=== PATIENT | female | born 1995 | race Two or more races ===

== ENCOUNTER 2016-07-05 18:18 | Emergency (ER) | payer SELFPAY ==
[~2016-07-05] VITALS: Ht 165.1 cm; Wt 62.1 kg
[2016-07-05 18:22] VITALS: BP 109/74
== END 2016-07-05 19:02 ==
LOC: EDBD → ED 19:01
DX: S16.1XXA Strain of muscle, fascia and tendon at neck level, initial encounter (principal); V89.2XXA Person injured in unspecified motor-vehicle accident, traffic, initial encounter; Y93.89 Activity, other specified; Y92.89 Other specified places as the place of occurrence of the external cause; Y99.8 Other external cause status
CPT/HCPCS: 99283

== ENCOUNTER 2016-07-05 18:22 | Emergency (ER) | payer MEDICAID, OTHER ==
[2016-07-05] MEDS ORDERED: KETOROLAC 30 MG/1 ML ONE (18:46)
[2016-07-05] MEDS ORDERED: METHOCARBAMOL 750 MG TABLET ONE (18:46)
[2016-07-05] MEDS ORDERED: KETOROLAC 30 MG/1 ML IM ONE (19:00)
[2016-07-05] MEDS ORDERED: METHOCARBAMOL 750 MG TABLET PO ONE (19:00)
[2016-07-05] MEDS ORDERED: PLEASE ENTER ALLERGIES MC SCH ×2 (19:00)
[2016-07-05 19:26] VITALS: BP 110/54
== END 2016-07-05 19:29 | disposition home or self-care (01) ==
LOC: MERGE 18:22 → ED 19:23
DX: M54.2 Cervicalgia (principal)
CPT/HCPCS: 72050; 96372; 99284; J1885

== ENCOUNTER 2019-07-13 18:53 | Emergency (ER) | payer MEDICAID, OTHER ==
[~2019-07-13] VITALS: Ht 157.5 cm; Wt 72.0 kg
--- NOTE | 2019-07-13 19:14 | NUR ---
THIS IS A 23 YO FEMALE COMING IN FOR "TIGHTNESS IN MY CHEST AND IT'S A LITTLE HARD TO CATCH MY BREATH". PATIENT STATES THESE SYMPTOMS STARTED YESTERDAY, THE PAST WEEK THOUGH HAS BEEN FEELING "FEVERY AND I HAD THE CHILLS AND A SORE THROAT". PATIENT DENIES ANY MEDICAL HX. LUNG SOUNDS CLEAR BUT MILDLY DIMINISHED THROUGHOUT. SPO2 AT 98% ON RA. 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 ALL MONITORING IN PLACE. CALL LIGHT IN REACH
--- NOTE | 2019-07-13 19:50 | NUR ---
Trung sexton in [facility] - 07/13/19 at 2015 by AUSTIN LISANDRA LAROSE
--- NOTE | 2019-07-13 20:00 | NUR ---
PATIENT RESTING, RESPIRATIONS EVEN AND UNLABORED. VSS. NAD. CALL LIGHT IN REACH
--- NOTE | 2019-07-13 20:45 | NUR ---
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
[2019-07-13 20:57] LABS: BASOPHILS # (AUTO) 0.05 x10^3/uL (0-0.1); BASOPHILS % (AUTO) 1 % (0-1); EOSINOPHILS # (AUTO) 0.18 x10^3/uL (0-0.4); EOSINOPHILS % (AUTO) 2 % (1-7); LYMPHOCYTES # (AUTO) 2.33 x10^3/uL (1-3.4); LYMPHOCYTES % (AUTO) 24 % (22-44); MD NO; MEAN CORPUSCULAR HEMOGLOBIN 30.3 pg (27.0-34.8); MEAN CORPUSCULAR HGB CONC 33.9 g/dL (32.4-35.8); MEAN CORPUSCULAR VOLUME 89.2 fL (80-100); MEAN PLATELET VOLUME 9.3 fL (7.4-10.4); MONOCYTES # (AUTO) 0.62 x10^3/uL (0.2-0.8); MONOCYTES % (AUTO) 7 % (2-9); NEUTROPHILS # (AUTO) 6.39 x10^3/uL (1.8-6.8); NEUTROPHILS % (AUTO) 67 % (42-75); PLATELET COUNT 280 x10^3/uL (130-400); RED BLOOD COUNT 4.79 x10^6/uL (3.82-5.3); RED CELL DISTRIBUTION WIDTH 12.9 % (9.6-15.2)
[2019-07-13 21:02] LABS: ALBUMIN 3.8 g/dL (3.4-5.0); ANION GAP 4 mmol/L (5-15); CHLORIDE 109 mmol/L (98-107); CREATININE 0.62 mg/dL (0.55-1.02)
[2019-07-13 21:07] VITALS: BP 117/76
--- NOTE | 2019-07-13 21:58 | NUR ---
Patient given discharge instructions and they have confirmed that they understand the instructions. Patient ambulatory with steady gait.
== END 2019-07-13 22:00 | disposition home or self-care (01) ==
LOC: ED 19:14
DX: J00 Acute nasopharyngitis [common cold] (principal); Z20.828 Contact with and (suspected) exposure to other viral communicable diseases; R07.89 Other chest pain; R50.9 Fever, unspecified
CPT/HCPCS: 36415; 71045; 80048; 82040; 85025; 93005; 99285; U0001

== ENCOUNTER 2020-01-16 16:44 | Emergency (ER) | payer MEDICAID ==
[~2020-01-16] VITALS: Ht 152.4 cm; Wt 70.4 kg
[2020-01-16] MEDS ORDERED: ACETAMINOPHEN 500 MG TABLET PO ONE (17:30)
[2020-01-16] MEDS ORDERED: ONDANSETRON 2MG/ML, 2ML IVPush ONE (17:30)
[2020-01-16] MEDS ORDERED: ONDANSETRON 2MG/ML, 2ML ONE (17:38)
[2020-01-16] MEDS ORDERED: ACETAMINOPHEN 500 MG TABLET ONE (17:38)
[2020-01-16 17:50] LABS: BASOPHILS % (AUTO) 1 % (0-1); EOSINOPHILS % (AUTO) 0 % (1-7); LYMPHOCYTES % (AUTO) 18 % (22-44); MEAN CORPUSCULAR HEMOGLOBIN 29.5 pg (27.0-34.8); MEAN CORPUSCULAR HGB CONC 33.6 g/dL (32.4-35.8); MEAN PLATELET VOLUME 9.3 fL (7.4-10.4); MONOCYTES % (AUTO) 7 % (2-9); NEUTROPHILS % (AUTO) 75 % (42-75); PLATELET COUNT 174 x10^3/uL (130-400); RED BLOOD COUNT 4.94 x10^6/uL (3.82-5.3); RED CELL DISTRIBUTION WIDTH 12.8 % (9.6-15.2)
[2020-01-16 17:54] LABS: MD NO
[2020-01-16 18:02] LABS: ALBUMIN 3.9 g/dL (3.4-5.0); ANION GAP 9 mmol/L (5-15); CALCIUM 8.5 mg/dL (8.5-10.1); CHLORIDE 106 mmol/L (98-107); CREATININE 0.65 mg/dL (0.55-1.02)
[2020-01-16 18:26] LABS: MICROSCOPIC INDICATED
[2020-01-16 18:36] VITALS: BP 112/65
[2020-01-16] MEDS ORDERED: SODIUM CHLORIDE 0.9% 1,000ML IVBOLUS ONE (19:00)
== END 2020-01-16 19:31 | disposition home or self-care (01) ==
LOC: ED 19:01
DX: U07.1 COVID-19 (principal); B34.9 Viral infection, unspecified; R00.0 Tachycardia, unspecified; R94.31 Abnormal electrocardiogram [ECG] [EKG]
CPT/HCPCS: 36415; 71045; 80048; 81001; 82040; 83605; 84145; 85025; 87040; 87086; 87635; 93005; 96361; 96374; 99285; J2405; J7030

== ENCOUNTER 2020-01-17 22:15 | Emergency (ER) | payer MEDICAID ==
[~2020-01-17] VITALS: Ht 152.4 cm; Wt 69.4 kg
[2020-01-17 22:32] VITALS: BP 109/63
--- NOTE | 2020-01-17 22:45 | NUR ---
PT. TO ROOM AT THIS TIME.
[2020-01-17] MEDS ORDERED: ACETAMINOPHEN 500 MG TABLET PO ONE (23:00)
[2020-01-17] MEDS ORDERED: DEXAMETHASONE 4 MG TABLET PO ONE (23:00)
[2020-01-17 23:19] LABS: RAPID INFLUENZA A Negative (Negative); RAPID INFLUENZA B Negative (Negative)
[2020-01-17] MEDS ORDERED: ACETAMINOPHEN 500 MG TABLET ONE (23:25)
[2020-01-17] MEDS ORDERED: DEXAMETHASONE 4 MG TABLET ONE (23:25)
== END 2020-01-18 00:03 | disposition home or self-care (01) ==
LOC: ED 23:31
DX: J15.9 Unspecified bacterial pneumonia (principal); J06.9 Acute upper respiratory infection, unspecified; R07.89 Other chest pain; R06.02 Shortness of breath; R00.0 Tachycardia, unspecified
CPT/HCPCS: 71045; 87400; 93005; 99285

== ENCOUNTER 2020-04-24 20:00 | Emergency (ER) | payer MEDICAID ==
[~2020-04-24] VITALS: Ht 162.6 cm; Wt 71.7 kg
--- NOTE | 2020-04-24 20:34 | NUR ---
pt states tingling up and down right arm. pt states tingling started in hand and overnight it was the whole arm. denies headache, neck pain. states having some shoulder pain.
[2020-04-24] MEDS ORDERED: IBUPROFEN 600 MG TABLET ONE (20:45)
[2020-04-24] MEDS ORDERED: IBUPROFEN 600 MG TABLET PO ONE (21:00)
[2020-04-24 21:09] VITALS: BP 128/78
== END 2020-04-24 21:15 | disposition home or self-care (01) ==
LOC: ED 20:30
DX: M54.12 Radiculopathy, cervical region (principal); M25.531 Pain in right wrist; M25.511 Pain in right shoulder; M79.631 Pain in right forearm; M25.521 Pain in right elbow
CPT/HCPCS: 99283; J7512